=== PATIENT | male | born 1975 | race Caucasian/White ===

== ENCOUNTER 2020-08-17 11:08 | Outpatient (REF) | payer BC, SELFPAY ==
[2020-08-17 15:06] LABS: Alanine Aminotransferase 40 U/L (0-40); Albumin Level 4.4 g/dL (3.5-5.0); Alkaline Phosphatase 60 U/L (39-117); Anion Gap 14 (12-20); Aspartate Amino Transferase 22 U/L (5-37); Bilirubin Total 0.7 mg/dL (0.0-1.0); Blood Urea Nitrogen 20 mg/dL (9-16); Carbon Dioxide 28 mmol/L (22-29); Chloride 101 mmol/L (96-108); Estimated Glomerular Filt Rate > 60; Glucose Random 121 mg/dL (60-115); Potassium 4.1 mmol/l (3.3-5.1); Sodium 139 mmol/L (135-145)
== END 2020-08-17 11:09 | disposition home or self-care (01) ==
LOC: HO.HMGCLDS 11:08
PROVIDERS: PCP Nurse Practitioner Family; Visit Provider Physician Assistant
DX: Z79.899 Other long term (current) drug therapy (principal)
CPT/HCPCS: 80053

== ENCOUNTER 2020-08-24 12:44 | Outpatient (REF) | payer BC, SELFPAY | END 2020-08-24 12:45 | disposition home or self-care (01) | LOC: HO.LNP 12:44 | PROVIDERS: Visit Provider Nurse Practitioner | DX: K21.9 Gastro-esophageal reflux disease without esophagitis (principal) | CPT/HCPCS: 87338 ==

== ENCOUNTER 2020-09-13 11:33 | Outpatient (REF) | payer BC, SELFPAY ==
[2020-09-13 14:31] LABS: Alanine Aminotransferase 35 U/L (0-40); Aspartate Amino Transferase 22 U/L (5-37)
== END 2020-09-13 11:34 | disposition home or self-care (01) ==
LOC: HO.HMGCLDS 11:33
PROVIDERS: PCP Nurse Practitioner Family; Visit Provider Dermatology
DX: Z79.899 Other long term (current) drug therapy (principal)
CPT/HCPCS: 84450; 84460

== ENCOUNTER 2021-09-23 10:09 | Outpatient (REF) | payer BC, SELFPAY ==
--- NOTE | ~2021-09-23 | XR_ITS ---
EXAMINATION: XR CHEST CLINICAL INFORMATION: U07.1 - COVID-19 COMPARISON: Chest radiographs 03/19/2017 TECHNIQUE: 2 views of the chest were obtained. FINDINGS: There are scattered patchy airspace opacity left midlung zone. There is more confluent airspace opacity mid right lung zone greatest anterior lateral upper lobe adjacent to minor fissure and lateral segment middle lobe. The vascularity is normal. There is no pneumothorax or pneumomediastinum or effusion. The heart is normal in size. The vascularity is normal. The hilar and mediastinal contours and bony structures are unremarkable. XR/XR chest 2V IMPRESSION: Scattered bilateral airspace opacities, greater on right. No effusion.
== END 2021-09-23 10:10 | disposition home or self-care (01) ==
LOC: HO.HMGCX 10:09
PROVIDERS: PCP Nurse Practitioner Family; Visit Provider Internal Medicine
DX: R05.9 Cough, unspecified (principal); R06.2 Wheezing; R09.89 Other specified symptoms and signs involving the circulatory and respiratory systems; U07.1 COVID-19
CPT/HCPCS: 71046

== ENCOUNTER 2021-10-06 09:24 | Outpatient (REF) | payer BC, SELFPAY ==
--- NOTE | ~2021-10-06 | XR_ITS ---
EXAMINATION: XR CHEST CLINICAL INFORMATION: Wheezing COMPARISON: 09/23/2021 TECHNIQUE: 2 views of the chest were obtained. FINDINGS: The lungs are well expanded. There is significant improvement of the patchy bilateral airspace opacities with faint residual opacity remaining. No pleural effusion or pneumothorax. The cardiomediastinal silhouette is within normal limits. XR/XR chest 2V IMPRESSION: Significantly improving appearance of the lungs with faint residual patchy bilateral airspace opacities.
== END 2021-10-06 09:25 | disposition home or self-care (01) ==
LOC: HO.HMGCX 09:24
PROVIDERS: PCP Nurse Practitioner Family; Visit Provider Nurse Practitioner Family
DX: R05.9 Cough, unspecified (principal); R06.2 Wheezing
CPT/HCPCS: 71046

== ENCOUNTER 2021-12-13 07:40 | Outpatient (REF) | payer BC, SELFPAY ==
[2021-12-13 11:34] LABS: MANUAL DIFF FLAG NO
[2021-12-13 11:44] LABS: Appearance Urine CLEAR; Color Urine YELLOW; Glucose Urine UA NEG (NEG); Leukocyte Esterase Urine NEG (NEG); Nitrite Urine NEG (NEG); Urine Blood NEG (NEG); Urine Ketones NEG (NEG); Urine Protein NEG (NEG-TRACE)
[2021-12-13 11:46] LABS: Basophils Percent Auto 0.5 % (0-2); Eosinophils Absolute Auto 0.2 X10*3/uL (0.0-0.4); Eosinophils Percent Auto 2.9 % (0-4); Hematocrit 47.3 % (42.0-52.0); Hemoglobin 15.9 g/dl (14.0-18.0); Imm Gran Abs Auto 0.03 X10*3/uL (0.00-0.03); Imm Gran Pct Auto 0.5 % (0.0-0.4); Lymphocytes Absolute Auto 1.6 X10*3/uL (1.2-4.9); Lymphocytes Percent Auto 28.1 % (20-40); Mean Corpuscular HGB Conc 33.6 g/dl (31.0-36.0); Mean Corpuscular Hemoglobin 31.5 pg (27.0-33.0); Mean Corpuscular Volume 93.7 fL (80.0-98.0); Mean Platelet Volume 9.2 fL (9.4-12.4); Monocytes Absolute Auto 0.5 X10*3/uL (0.1-1.2); Monocytes Percent Auto 8.4 % (2-11); Neutrophils Absolute Auto 3.3 x10*3/uL (2.0-8.3); Neutrophils Percent Auto 59.6 % (45-73); Platelet Count 273 X10*3/uL (160-400); Red Blood Count 5.05 X10*6/uL (4.60-5.80); Red Cell Distribution Width 11.9 % (11.0-16.0); White Blood Count 5.6 X10*3/uL (4.8-10.8)
[2021-12-13 12:25] LABS: Alanine Aminotransferase 26 U/L (0-40); Albumin Level 4.3 g/dL (3.5-5.0); Alkaline Phosphatase 59 U/L (39-117); Anion Gap 9 (12-20); Aspartate Amino Transferase 18 U/L (5-37); Bilirubin Total 0.8 mg/dL (0.0-1.0); Blood Urea Nitrogen 15 mg/dL (9-16); Calcium 9.4 mg/dL (8.4-10.2); Carbon Dioxide 30 mmol/L (22-29); Chloride 105 mmol/L (96-108); Cholesterol 236 mg/dL; Estimated Glomerular Filt Rate > 60; Glucose Fasting 110 mg/dL (60-99); HDL Cholesterol 61 mg/dL; LDL Cholesterol Calculated 153 mg/dl; Potassium 4.2 mmol/L (3.3-5.1); Sodium 140 mmol/L (135-145); Total Protein 6.7 g/dL (6.5-8.0); Triglycerides 113 mg/dL
[2021-12-13 12:27] LABS: TSH reflex Free T4 2.71 uIU/mL (0.32-4.0)
[2021-12-13 12:31] LABS: Folate 18.8 ng/mL (> or = 4.0); Vitamin B12 624 pg/mL (200-900)
[2021-12-17 10:26] LABS: Vitamin B6 23.7 ng/mL (2.1-21.7)
== END 2021-12-13 07:41 | disposition home or self-care (01) ==
LOC: HO.HMGCLDS 07:40
PROVIDERS: Visit Provider Nurse Practitioner Family
DX: I10 Essential (primary) hypertension (principal); R53.83 Other fatigue
CPT/HCPCS: 36415; 80053; 80061; 81003; 82306; 82607; 82746; 84207; 84443; 85025

== ENCOUNTER 2022-03-25 06:38 | Outpatient (REF) | payer BC, SELFPAY ==
[2022-03-25 11:13] LABS: MANUAL DIFF FLAG NO
[2022-03-25 11:18] LABS: Basophils Percent Auto 0.5 % (0-2); Eosinophils Absolute Auto 0.2 X10*3/uL (0.0-0.4); Eosinophils Percent Auto 2.9 % (0-4); Hematocrit 45.3 % (42.0-52.0); Hemoglobin 15.1 g/dl (14.0-18.0); Imm Gran Abs Auto 0.02 X10*3/uL (0.00-0.03); Imm Gran Pct Auto 0.3 % (0.0-0.4); Lymphocytes Absolute Auto 1.5 X10*3/uL (1.2-4.9); Lymphocytes Percent Auto 25.3 % (20-40); Mean Corpuscular HGB Conc 33.3 g/dl (31.0-36.0); Mean Corpuscular Hemoglobin 31.6 pg (27.0-33.0); Mean Corpuscular Volume 94.8 fL (80.0-98.0); Mean Platelet Volume 9.1 fL (9.4-12.4); Monocytes Absolute Auto 0.7 X10*3/uL (0.1-1.2); Monocytes Percent Auto 10.9 % (2-11); Neutrophils Absolute Auto 3.6 x10*3/uL (2.0-8.3); Neutrophils Percent Auto 60.1 % (45-73); Platelet Count 282 X10*3/uL (160-400); Red Blood Count 4.78 X10*6/uL (4.60-5.80); Red Cell Distribution Width 11.8 % (11.0-16.0); White Blood Count 5.9 X10*3/uL (4.8-10.8)
[2022-03-25 11:19] LABS: Appearance Urine CLEAR; Color Urine YELLOW; Glucose Urine UA NEG (NEG); Leukocyte Esterase Urine NEG (NEG); Nitrite Urine NEG (NEG); PH 6.5 (5.0-8.0); Urine Blood NEG (NEG); Urine Ketones NEG (NEG); Urine Protein NEG (NEG-TRACE)
[2022-03-25 11:53] LABS: Alanine Aminotransferase 29 U/L (0-40); Albumin Level 4.4 g/dL (3.5-5.0); Alkaline Phosphatase 61 U/L (39-117); Anion Gap 13 (12-20); Aspartate Amino Transferase 26 U/L (5-37); Bilirubin Total 0.8 mg/dL (0.0-1.0); Blood Urea Nitrogen 14 mg/dL (9-16); Calcium 9.6 mg/dL (8.4-10.2); Carbon Dioxide 27 mmol/L (22-29); Chloride 103 mmol/L (96-108); Cholesterol 204 mg/dL; Estimated Glomerular Filt Rate > 60; Glucose Fasting 107 mg/dL (60-99); HDL Cholesterol 62 mg/dL; LDL Cholesterol Calculated 127 mg/dl; Potassium 3.9 mmol/L (3.3-5.1); Sodium 139 mmol/L (135-145); Total Protein 6.9 g/dL (6.5-8.0); Triglycerides 78 mg/dL
[2022-03-25 11:59] LABS: Prostate Specific Antigen Scr 1.72 ng/mL (<0.05-4.0); TSH reflex Free T4 1.93 uIU/mL (0.32-4.0)
== END 2022-03-25 06:39 | disposition home or self-care (01) ==
LOC: HO.HMGCLDS 06:38
PROVIDERS: PCP Nurse Practitioner Family; Visit Provider Nurse Practitioner Family
DX: Z12.5 Encounter for screening for malignant neoplasm of prostate (principal); R73.01 Impaired fasting glucose; I10 Essential (primary) hypertension
CPT/HCPCS: 36415; 80053; 80061; 81003; 84153; 84443; 85025

== ENCOUNTER 2022-04-08 11:12 | Outpatient (REF) | payer BC, SELFPAY ==
[2022-04-08 13:03] LABS: Alanine Aminotransferase 28 U/L (0-40); Aspartate Amino Transferase 20 U/L (5-37)
== END 2022-04-08 11:13 | disposition home or self-care (01) ==
LOC: HO.HMGCLDS 11:12
PROVIDERS: PCP Nurse Practitioner Family; Visit Provider Dermatology
DX: L30.9 Dermatitis, unspecified (principal)
CPT/HCPCS: 36415; 84450; 84460

== ENCOUNTER 2023-08-11 06:50 | Outpatient (REF) | payer BC, SELFPAY ==
[2023-08-11 11:16] LABS: Appearance Urine Clear; Color Urine Yellow; Glucose Urine UA Negative (Negative); Leukocyte Esterase Urine Negative (Negative); Nitrite Urine Negative (Negative); PH 6.5 (5.0-9.0); Specific Gravity - Urine 1.015 (1.005-1.025); Urine Blood Negative (Negative); Urine Ketones Negative (Negative); Urine Protein Negative (Neg-Trace)
[2023-08-11 11:19] LABS: MANUAL DIFF FLAG NO
[2023-08-11 11:22] LABS: Basophils Percent Auto 0.5 % (0-2); Eosinophils Absolute Auto 0.2 X10*3/uL (0.0-0.4); Hematocrit 44.9 % (42.0-52.0); Hemoglobin 15.3 g/dl (14.0-18.0); Imm Gran Abs Auto 0.03 X10*3/uL (0.00-0.03); Imm Gran Pct Auto 0.4 % (0.0-0.4); Lymphocytes Absolute Auto 1.4 X10*3/uL (1.2-4.9); Lymphocytes Percent Auto 16.8 % (20-40); Mean Corpuscular HGB Conc 34.1 g/dl (31.0-36.0); Mean Corpuscular Hemoglobin 32.1 pg (27.0-33.0); Mean Corpuscular Volume 94.1 fL (80.0-98.0); Mean Platelet Volume 9.1 fL (9.4-12.4); Monocytes Absolute Auto 0.7 X10*3/uL (0.1-1.2); Monocytes Percent Auto 8.2 % (2-11); Neutrophils Absolute Auto 5.9 x10*3/uL (2.0-8.3); Neutrophils Percent Auto 72.1 % (45-73); Platelet Count 243 X10*3/uL (160-400); Red Blood Count 4.77 X10*6/uL (4.60-5.80); Red Cell Distribution Width 11.6 % (11.0-16.0); White Blood Count 8.2 X10*3/uL (4.8-10.8)
[2023-08-11 11:47] LABS: Alanine Aminotransferase 27 U/L (0-40); Albumin Level 4.1 g/dL (3.5-5.0); Alkaline Phosphatase 50 U/L (39-117); Anion Gap 12 (12-20); Aspartate Amino Transferase 19 U/L (5-37); Bilirubin Total 1.2 mg/dL (0.0-1.0); Blood Urea Nitrogen 14 mg/dL (9-16); Calcium 9.2 mg/dL (8.4-10.2); Carbon Dioxide 26 mmol/L (22-29); Chloride 105 mmol/L (96-108); Cholesterol 198 mg/dL (<200); Estimated Glomerular Filt Rate > 60; Glucose Fasting 95 mg/dL (60-99); HDL Cholesterol 62 mg/dL (>40); LDL Cholesterol Calculated 117 mg/dL (<100); Potassium 3.9 mmol/L (3.3-5.1); Sodium 139 mmol/L (135-145); Total Protein 6.6 g/dL (6.5-8.0); Triglycerides 97 mg/dL (<150)
[2023-08-11 12:04] LABS: TSH reflex Free T4 2.12 uIU/mL (0.32-4.0)
== END 2023-08-11 06:51 | disposition home or self-care (01) ==
LOC: HO.HMGCLDS 06:50
PROVIDERS: PCP Nurse Practitioner Family; Visit Provider Nurse Practitioner Family
DX: I10 Essential (primary) hypertension (principal)
CPT/HCPCS: 36415; 80053; 80061; 81003; 84443; 85025

== ENCOUNTER 2023-10-04 15:07 | Outpatient (AMB) | payer BC, SELFPAY ==
[2023-10-04 16:03] VITALS: BP 120/78; PULSE 99; TEMP 36.4; O2SAT 99; BMI 28.7
--- NOTE | 2023-10-04 16:03 | AM.OFFWIN_ITS ---
Intake Vital Signs 10/04/23 16:03 Height 5 ft 8 in Weight 189 lb BMI 28.7 BP 120/78 Blood Pressure Location Rt brachial Position Sitting Pulse 99 Pulse Source Pulse Oximeter Temp 97.5 F Temp Source Temporal Artery Scan Pulse Oximetry (%) 99 Oxygen Delivery Method Room Air Intake Visit Reasons: EP, head congestion, ear pain ([phone]) Intake Note: pt is here today for head congestion ear pain started 3 weeks Patient Tobacco Use Status: Never used Tobacco Allergies shellfish derived Allergy (Unknown, Verified 10/04/23 16:05) Facial Swelling acetaminophen [From Percocet] Adverse Reaction (Unknown, Verified 10/04/23 16:05) NAUSEA/VOMITING oxycodone [From Percocet] Adverse Reaction (Unknown, Verified 10/04/23 16:05) NAUSEA/VOMITING Do you need a note to return to daycare/school/sports/work: Yes HPI HPI Comments History of Present Illness Details This is a 47-year-old male with a past medical history of hypertension and seasonal allergies presenting for evaluation of sinus pressure that has been worsening over the past 3 weeks and new ear pain, right greater than left as well as a cough with discolored sputum. Patient denies having any fevers, chills, difficulty swallowing, chest pain or shortness of breath. Patient has not taken any medication [id number] for management of his symptoms. [facility] Medical History Plantar fasciitis of right foot Social History Housing: House Patient Tobacco Use Status: Never used Tobacco e-Cigarette/Vaping Use: Never Used Second Hand Smoke Exposure: No service: No Current occupational status: unemployed Cognitive needs: No Hearing needs: No Vision needs: No Review of Systems Const All systems reviewed & are unremarkable except as noted in HPI and below Denies chills and Denies fever(s) Eyes Reports no additional complaints ENT Reports no additional complaints, Reports otalgia and Denies sore throat Card Reports no additional complaints and Denies dyspnea Resp Reports as per HPI, Reports cough and Denies dyspnea Physical Exam Vital Signs: Last Vital Signs Temp 97.5 F 10/04/23 16:03 Pulse 99 10/04/23 16:03 BP 120/78 10/04/23 16:03 Pulse Ox 99 10/04/23 16:03 Oxygen Delivery Method Room Air 10/04/23 16:03 BMI result Body Mass Index 28.7 Const General: cooperative, healthy appearing, comfortable and no acute distress Nutritional Appearance: average body habitus Orientation/consciousness: patient oriented x3 Limitations: no limitations HEENT Head: Yes normal to inspection and Yes normocephalic Ears: hearing grossly normal bilaterally, external ears normal, TM's abnormal bilaterally (TMs bulging bilaterally; R. TM erythematous with mild fluid level) and EAC's normal General nose exam: Normal external nose present Face and sinus: Yes normal facial exam and Yes sinuses nontender Mouth: Normal oral and palatal mucosa present and oropharynx normal Teeth and gingiva: dentition normal Throat: Yes postnasal drainage Eyes Eyelids: Yes eyelids normal Conjunctivae: conjunctivae normal Sclerae: sclerae normal Pupils: Equal, round and reactive pupils present Neck Lymphatic: no lymphadenopathy noted Resp Effort & Inspection: normal respiratory effort, able to speak in complete sentences, no audible wheezes and Actively coughing Auscultation: clear to auscultation bilaterally Cardio Rate: regular rate Rhythm: regular rhythm Neuro General: patient oriented x3 Cranial nerves: Yes Equal, round and reactive pupils present Psych Appearance: grossly normal Mental Status: mental status grossly normal Insight: Good insight present (Psych) Judgement: Good judgement present (Psych) Assessment & Plan Assessment & Plan (1) Otitis media: Code(s): H66.90 - Otitis media, unspecified, unspecified ear Qualifiers: Otitis media type: serous Chronicity: acute Laterality: right Recurrence: non-recurrent Qualified Code(s): H65.01 - Acute serous otitis media, right ear Plan: Amoxicillin t.i.d. x7 days; increase clear fluids daily, follow-up with PCP within 10-14 days if symptoms not improving. Medications: New amoxicillin 500 mg PO TID 21 caps 0RF Coding Level of Care Code Est Pt Level 3 (26126) Diagnoses Non-recurrent acute serous otitis media of right ear H65.01 Otitis media type: serous Chronicity: acute Laterality: right Recurrence: non-recurrent Time Spent (min) 20
== END 2023-10-04 17:54 | disposition home or self-care (01) ==
PROVIDERS: PCP Nurse Practitioner Family; Visit Provider Physician Assistant
DX: H65.01 Acute serous otitis media, right ear (principal)
CPT/HCPCS: 99213

== ENCOUNTER 2023-10-05 12:37 | Outpatient (REF) | payer BC, SELFPAY ==
[2023-10-05 14:49] LABS: Alanine Aminotransferase 23 U/L (0-40); Aspartate Amino Transferase 20 U/L (5-37)
== END 2023-10-05 12:38 | disposition home or self-care (01) ==
LOC: HO.HMGCLDS 12:37
PROVIDERS: PCP Nurse Practitioner Family; Visit Provider Dermatology
DX: B35.1 Tinea unguium (principal); L30.8 Other specified dermatitis; L85.1 Acquired keratosis [keratoderma] palmaris et plantaris
CPT/HCPCS: 36415; 84450; 84460

== ENCOUNTER 2024-05-29 15:06 | Outpatient (AMB) | payer BC, SELFPAY ==
--- NOTE | 2024-05-29 15:27 | MHC.PC.OV ---
Vital Signs 05/29/24 15:29 Height 5 ft 8 in Weight 190 lb BMI 28.9 BP 118/78 Blood Pressure Location Rt brachial Position Sitting Pulse 86 Pulse Source Pulse Oximeter Pulse Oximetry (%) 98 Oxygen Delivery Method Room Air Intake Visit Reasons: Physical Exam - see comments Intake Note: Patient here for physical exam. Cologuard: has it at home but has done yet. Allergies shellfish derived Allergy (Unknown, Verified 05/29/24 15:30) Facial Swelling acetaminophen [From Percocet] Adverse Reaction (Unknown, Verified 05/29/24 15:30) NAUSEA/VOMITING oxycodone [From Percocet] Adverse Reaction (Unknown, Verified 05/29/24 15:30) NAUSEA/VOMITING Medication List - Last Reconciled 05/29/24 by ALEXSANDRA Moore amlodipine 10 mg PO DAILY 90 days labetalol 100 mg PO BID Tobacco use date assessed: 05/29/24 Dental Screening Dental Screen Date: 05/29/24 Did you have a dental visit in the last 12 months?: Yes Did you have a dental problem in the last 6 months where you did not have access to dental care?: No Was dental information given to patient?: Patient has dentist HPI Physical Exam - see comments HPI Details Pt is here for a PE. Will order labs. Due for colon screen, will order cologuard. Due for PSA, will order. Denies dribbling with urination, weak stream, and frequent nocturia. [facility] Medical History Plantar fasciitis of right foot Social History Housing: House Patient Tobacco Use Status: Never used Tobacco e-Cigarette/Vaping Use: Never Used Second Hand Smoke Exposure: No service: No Current occupational status: unemployed Cognitive needs: No Hearing needs: No Vision needs: No Questionnaire PHQ-9 Over the last 2 weeks, how often have you been bothered by any of the following problems? 1. Little interest or pleasure in doing things: not at all 2. Feeling down, depressed, or hopeless: not at all 3. Trouble falling or staying asleep, or sleeping too much: not at all 4. Feeling tired or having little energy: not at all 5. Poor appetite or overeating: not at all 6. Feeling bad about yourself - or that you are a failure or have let yourself or your family down: not at all 7. Trouble concentrating on things, such as reading the newspaper or watching television: not at all 8. Moving or speaking so slowly that other people could have noticed. Or the opposite - being so fidgety or restless that you have been moving around a lot more than usual: not at all 9. Thoughts that you would be better off or of hurting yourself in some way: not at all Total score: 0 Depression Screening Interpretation: Negative Depression Screening Done: Yes 59335 - PHQ-9 Billing: Yes Source: Developed by Drs. Rodolfo Grimaldo, Elke Dukes, Iggy Swann and colleagues, with an educational carey from [employer]. Thrive Questionnaire Date Thrive assessed: 05/29/24 I am a: Patient What is your living situation today?: I have a steady place to live Within the past 12 months, did the food you bought not last and you didn't have the money to get more?: I choose not to answer this question Within the past 12 months, did you worry whether your food would run out before you got money to buy more?: I choose not to answer this question Do you have trouble paying for medicines?: I choose not to answer this question Do you have trouble getting transportation to medical appointments?: I choose not to answer this question Do you have trouble paying your heating and electricity bill?: I choose not to answer this question Do you have trouble taking care of your child, family member or friend?: I choose not to answer this question Do you have trouble with day-to-day activities such as bathing, preparing meals, shopping, managing finances, etc.?: I choose not to answer this question Are you currently unemployed and looking for a job?: No Are you interested in more education?: I choose not to answer this question Please select the resources that you would like help with: Housing/Half-Way Currently or been in a relationship where the following occur: I choose not to answer THRIVE Score: 0 AUDIT C Alcohol Use Questionnaire (AUDIT-C) 1. How often do you have a drink containing alcohol?: Never Total Score: 0 Score Reviewed/Action Taken: No MIRZA-7 AMB Questionnaire MIRZA-7 Date MIRZA - 7 assessed: 05/29/24 Feeling nervous, anxious, or on edge: 0 = Not at all Not being able to stop or control worryin = Not at all Worrying too much about different things: 0 = Not at all Trouble relaxin = Not at all Being so restless that it is hard to sit still: 0 = Not at all Becoming easily annoyed or irritable: 0 = Not at all Feeling afraid as if something awful might happen: 0 = Not at all Total MIRZA-7 score (0-4 normal; 5-9 mild; 10-14 moderate; 15-21 severe): 0 Source: Developed by Drs. Rodolfo Grimaldo, Elke Dukes, Iggy Swann and colleagues, with an educational carey from [employer]. MIRZA-7 Assessment Billing MIRZA-7 Assessment Tool: MIRZA-7 Assessment 13382 Review of Systems Const Denies chills and Denies fever(s) Eyes Denies blurry vision ENT Denies vertigo, Denies dizziness and Denies sore throat Card Denies chest pain at rest, Denies chest pain with activity, Denies diaphoresis, Denies dyspnea and Denies dyspnea on exertion Resp Denies cough, Denies dyspnea, Denies dyspnea on exertion and Denies wheezing GI Denies abdominal pain, Denies melena, Denies hematochezia, Denies constipation, Denies diarrhea and Denies loose stools Denies hematuria Musc Denies numbness and Denies tingling Skin/Breast Denies lesions Neuro Denies vertigo, Denies dizziness, Denies numbness and Denies tingling Psych Denies anxiety, Denies depression, Denies homicidal ideation, Denies suicidal ideation and Denies other (substance abuse) Aller/Immun Denies wheezing Physical exam (Primary Care) Vital Signs: Last Vital Signs Pulse 86 05/29/24 15:29 BP 118/78 05/29/24 15:29 Pulse Ox 98 05/29/24 15:29 Oxygen Delivery Method Room Air 05/29/24 15:29 BMI result Body Mass Index 28.9 Tobacco/Smoking Status: Tobacco use Status Tobacco use date assessed 05/29/24 05/29/24 15:33 Patient Tobacco Use Status Never used Tobacco 05/29/24 15:28 e-Cigarette/Vaping Use Never Used 05/29/24 15:28 PHQ-9: PHQ-9 Score PHQ-9: Total score 0 05/29/24 15:57 Depression Screening Interpretation: Negative Thrive Assessment: Date of Thrive Assessment Date Thrive assessed 05/29/24 05/29/24 15:33 Currently or been in a relationship where the following occur: I choose not to answer Const General: cooperative Nutritional Appearance: well nourished Orientation/consciousness: patient oriented x3 HENMT Head: Yes normal to inspection, Yes normocephalic and Yes atraumatic Ears: TM's normal bilaterally Eyes General: appearance normal, both eyes and all related structures Alignment and Position: alignment normal and position normal Neck Neck: Yes normal visual inspection and Yes no lymphadenopathy Thyroid: Thyroid normal Resp Effort & Inspection: normal respiratory effort Auscultation: clear to auscultation bilaterally Cardio Rate: regular rate Rhythm: regular rhythm Heart sounds: S1 normal heart sound present, S2 normal heart sound present and no murmurs GI Palpation (GI): Soft to palpation and nontender Auscultation: normal bowel sounds Male General Exam: Yes normal external exam Penis: normal penis Scrotum: scrotum normal, testes descended bilaterally and no inguinal hernias Testes: no testicular mass Skin Rashes: no rashes Neuro General: patient oriented x3, moves all extremities, no focal motor deficits and deep tendon reflexes 2+ bilaterally Romberg Test: Negative Psych Appearance: grossly normal Mental Status: mental status grossly normal Speech and movement: Normal speech and movement present Affect: normal affect Attitude: cooperative Thought process: Normal thought process present Thought content: Normal thought content present Insight: Good insight present (Psych) Judgement: Good judgement present (Psych) Assessment and Plan Assessment & Plan (1) Screening PSA (prostate specific antigen): Code(s): Z12.5 - Encounter for screening for malignant neoplasm of prostate (2) Encounter for routine adult physical exam with abnormal findings: Code(s): Z00.01 - Encounter for general adult medical examination with abnormal findings (3) Encounter for routine adult physical exam with abnormal findings: Code(s): Z00.01 - Encounter for general adult medical examination with abnormal findings (4) Encounter for routine adult physical exam with abnormal findings: Code(s): Z00. - Encounter for general adult medical examination with abnormal findings (5) Physical exam: Code(s): Z00.00 - Encounter for general adult medical examination without abnormal findings Plan: Labs ordered Plan The patient agreed to the use of a medical cash poster for this encounter. Scribed for ALEXSANDRA Barriga by Lorena Levi medical cash poster, on 05/29/2024 at 15:55 EST. Orders: Orders UA CC w/rflx Micro + Cult Today Z00.01 - Encounter for general adult medical examination with abnormal findings Prostate Specific Antigen Scr Today Z12.5 - Encounter for screening for malignant neoplasm of prostate Complete Blood Count Auto Diff Today Z00.01 - Encounter for general adult medical examination with abnormal findings Comprehensive [place]. Panel Fast Today Z00.01 - Encounter for general adult medical examination with abnormal findings TSH reflex Free T4 Today Z00.01 - Encounter for general adult medical examination with abnormal findings Lipid Panel Today Z00.01 - Encounter for general adult medical examination with abnormal findings Coding Level of Care Code Est Pt Prev Care 40-64y(98787) Diagnoses Screening PSA (prostate specific antigen) Z12.5 Encounter for routine adult physical exam with abnormal findings Z00.01 Physical exam Z00.00 Additional Codes MIRZA-7 Assessment Billing - MIRZA-7 Assessment Tool: MIRZA-7 Assessment 72770 ([id number])
[2024-05-29 15:29] VITALS: BP 118/78; PULSE 86; O2SAT 98; BMI 28.9
== END 2024-05-29 16:53 | disposition home or self-care (01) ==
PROVIDERS: PCP Nurse Practitioner Family; Visit Provider Nurse Practitioner Family
DX: Z00.00 Encounter for general adult medical examination without abnormal findings (principal); Z12.5 Encounter for screening for malignant neoplasm of prostate
CPT/HCPCS: 99396

== ENCOUNTER 2024-07-09 07:37 | Outpatient (REF) | payer BC, SELFPAY ==
[2024-07-09 10:09] LABS: MANUAL DIFF FLAG NO
[2024-07-09 10:20] LABS: Basophils Percent Auto 0.5 % (0-2); Eosinophils Absolute Auto 0.2 X10*3/uL (0.0-0.4); Hematocrit 43.1 % (42.0-52.0); Hemoglobin 14.8 g/dl (14.0-18.0); Imm Gran Abs Auto 0.02 X10*3/uL (0.00-0.03); Imm Gran Pct Auto 0.3 % (0.0-0.4); Lymphocytes Absolute Auto 1.3 X10*3/uL (1.2-4.9); Lymphocytes Percent Auto 20.8 % (20-40); Mean Corpuscular HGB Conc 34.3 g/dl (31.0-36.0); Mean Corpuscular Volume 93.3 fL (80.0-98.0); Monocytes Absolute Auto 0.6 X10*3/uL (0.1-1.2); Monocytes Percent Auto 9.5 % (2-11); Neutrophils Percent Auto 65.9 % (45-73); Platelet Count 256 X10*3/uL (160-400); Red Blood Count 4.62 X10*6/uL (4.60-5.80); Red Cell Distribution Width 11.7 % (11.0-16.0)
[2024-07-09 10:39] LABS: Appearance Urine Clear; Color Urine Yellow; Glucose Urine UA Negative (Negative); Leukocyte Esterase Urine Negative (Negative); Nitrite Urine Negative (Negative); Urine Blood Negative (Negative); Urine Ketones Negative (Negative); Urine Protein Negative (Neg-Trace)
[2024-07-09 10:47] LABS: Alanine Aminotransferase 36 U/L (0-40); Albumin Level 4.3 g/dL (3.5-5.0); Alkaline Phosphatase 51 U/L (39-117); Anion Gap 10 (12-20); Aspartate Amino Transferase 25 U/L (5-37); Bilirubin Total 0.5 mg/dL (0.0-1.0); Blood Urea Nitrogen 16 mg/dL (9-16); Calcium 9.1 mg/dL (8.4-10.2); Carbon Dioxide 27 mmol/L (22-29); Chloride 108 mmol/L (96-108); Cholesterol 223 mg/dL (<200); Estimated Glomerular Filt Rate > 60; Glucose Fasting 118 mg/dL (60-99); HDL Cholesterol 57 mg/dL (>40); LDL Cholesterol Calculated 153 mg/dL (<100); Potassium 4.8 mmol/L (3.3-5.1); Sodium 140 mmol/L (135-145); Total Protein 6.7 g/dL (6.5-8.0); Triglycerides 67 mg/dL (<150)
[2024-07-09 10:54] LABS: Prostate Specific Antigen Scr 1.87 ng/mL (<0.05-4.0)
[2024-07-09 11:03] LABS: TSH reflex Free T4 2.16 uIU/mL (0.32-4.0)
== END 2024-07-09 07:38 | disposition home or self-care (01) ==
LOC: HO.HMGCLDS 07:37
PROVIDERS: PCP Nurse Practitioner Family; Visit Provider Nurse Practitioner Family
DX: Z00.01 Encounter for general adult medical examination with abnormal findings (principal); Z12.5 Encounter for screening for malignant neoplasm of prostate
CPT/HCPCS: 36415; 80053; 80061; 81003; 84153; 84443; 85025

== ENCOUNTER 2025-05-03 19:04 | Emergency (ER) | payer BC, SELFPAY ==
[2025-05-03 19:23] VITALS: BP 123/87; PULSE 99; RESP 16; TEMP 37.2; O2SAT 99; BMI 29.5
--- NOTE | 2025-05-03 19:25 | ED.GENADULT ---
HPI - General Adult General Chief complaint: Animal Bite Stated complaint: dog bite on abd Time Seen by Provider: 05/03/25 20:21 Source: patient Limitations: no limitations History of Present Illness ED Provider: Selin Kimble PA-C HPI narrative: 49-year-old male presents after dog bite. Patient states a dog randomly attacked him. He was able to verify the dog's vaccine history, the rabies his current it does not until next year in July. Patient's tetanus vaccine is not up-to-date. Related Data Previous Rx's ?Medication ?Instructions ?Recorded amlodipine 10 mg tablet 10 mg PO DAILY 90 days #90 tabs 12/18/24 labetalol 100 mg tablet 100 mg PO BID #180 tabs 12/18/24 amoxicillin 875 mg-potassium 1 tab PO Q12H #9 tabs 05/03/25 clavulanate 125 mg tablet Allergies Allergy/AdvReac Type Severity Reaction Status Date / Time shellfish derived Allergy Unknown Facial Verified 05/03/25 19:23 Swelling acetaminophen (From Percocet) AdvReac Unknown NAUSEA/VOMI Verified 05/03/25 19:23 TING oxycodone (From Percocet) AdvReac Unknown NAUSEA/VOMI Verified 05/03/25 19:23 TING Review of Systems Review of Systems: Yes all other systems are reviewed and are negative Constitutional: Constitutional: Denies fatigue and Denies fever(s) Integumentary/Breasts: Skin/Breast: Reports wounds Endocrine: Endocrine: Denies fatigue PMFSH Past Medical History Attestation statement: The following information was validated with the patient. Medical History (Updated 05/03/25 @ 20:54 by MANIJT Childers) Rupture of right biceps tendon Plantar fasciitis of right foot Social History Social History Housing: House Patient Tobacco Use Status: Never used Tobacco e-Cigarette/Vaping Use: Never Used Second Hand Smoke Exposure: No service: No Current occupational status: unemployed Cognitive needs: No Hearing needs: No Vision needs: No Physical Exam ED Vital Signs: Vital Signs - 24 hr 05/03/25 19:23 05/03/25 20:27 Temperature 98.9 F 98.4 F Pulse Rate 99 103 H Respiratory Rate 16 20 Blood Pressure 123/87 138/91 H Pulse Oximetry 99 96 Oxygen Delivery Method Room Air Room Air BMI result Body Mass Index 29.5 Const Other: Alert Resp Effort & Inspection: normal respiratory effort Cardio Other: Normal peripheral perfusion GI Other: Bite wound noted over right lower abdomen, there is a superficial excoriation from the teeth, overlying ecchymosis, additional superficial punctures that are no longer bleeding. Skin Other: Warm dry no rash Extrem Other: 1 cm excoriation over right calf, not bleeding, from the dog's tooth Course Course Course Narrative: This is a rapid medical exam performed by Jeffy Philippe NP: Additional HPI, ROS, PE not included below will be deferred to primary provider. Patient is a 49-year-old male presenting to the ED with complaint of dog bite to abdomen. Occurred in [place], dog was being walked by a doggy daycare activities director. 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 He is unsure if dog is UTD on vaccinations. States he contacted police who came to his home to fill out a police report. Plan: Patient unsure what vaccinations he is willing to get. Medical Decision Making Medical Decision Making MDM Narrative: 49-year-old male presents after dog bite. Patient states a dog randomly attacked him. He was able to verify the dog's vaccine history, the rabies his current it does not until next year in July. Patient's tetanus vaccine is not up-to-date. No chronic issues History: Per patient I have considered the following differential diagnoses: Bite wound, need for rabies prophylaxis, puncture wound, laceration, excoriation, abrasion Plan: The wounds were cleaned and dressed, there was nothing to repair. Updating the tetanus. The patient has a dog's vaccine record. Placing the patient on Augmentin. Discharge Plan Discharge Clinical Impression: Dog bite of abdomen Patient Disposition: Home, Self-Care Instructions: Animal Bite (ED) Additional Instructions: You are being treated for a dog bite. Your tetanus was updated, it is valid for 10 years. You are being placed on prophylactic antibiotics to help prevent infection, take the Augmentin as directed. This antibiotic has a propensity to cause diarrhea, I would take a concurrent probiotic. Follow up with your primary care provider within a week for a wound check. Prescriptions: New amoxicillin-pot clavulanate 875-125 mg tablet 1 tab PO Q12H Qty: 9 0RF No Action amlodipine 10 mg tablet 10 mg PO DAILY 90 Days Qty: 90 1RF labetalol 100 mg tablet 100 mg PO BID Qty: 180 1RF Print Language: [place]
[2025-05-03 20:27] VITALS: BP 138/91; PULSE 103; RESP 20; TEMP 36.9; O2SAT 96
[2025-05-03] MEDS: Diphth,Pertus(ACell),Tet Adult 0.5 ML SYRINGE IM (21:02)
[2025-05-03 21:05] VITALS: BP 138/91; PULSE 103; RESP 20; TEMP 36.9; O2SAT 96
== END 2025-05-03 21:21 | disposition home or self-care (01) ==
PROVIDERS: Emergency Provider Emergency Medicine; PCP Nurse Practitioner Family
DX: S31.159A Open bite of abdominal wall, unspecified quadrant without penetration into peritoneal cavity, initial encounter (principal); S30.811A Abrasion of abdominal wall, initial encounter; S30.1XXA Contusion of abdominal wall, initial encounter; W54.0XXA Bitten by dog, initial encounter; Y93.9 Activity, unspecified; Y92.9 Unspecified place or not applicable; Y99.8 Other external cause status; Z23 Encounter for immunization
CPT/HCPCS: 90471; 90715; 99283; 99284

== ENCOUNTER 2025-05-08 09:43 | Outpatient (AMB) | payer BC, SELFPAY ==
[2025-05-08 10:00] VITALS: BP 120/72; PULSE 85; TEMP 37.2; O2SAT 98; BMI 29.8
--- NOTE | 2025-05-08 10:00 | AM.OFFWIN_ITS ---
Intake Vital Signs 05/08/25 10:00 Height 5 ft 8 in Weight 196 lb 4 oz BMI 29.8 BP 120/72 Blood Pressure Location Rt brachial Position Sitting Pulse 85 Pulse Source Pulse Oximeter Temp 99.0 F Temp Source Oral Pulse Oximetry (%) 98 Oxygen Delivery Method Room Air Intake Visit Reasons: EP Dog bite, rt hip Intake Note: Patient presents with a dog bite from 5 days ago Patient Tobacco Use Status: Never used Tobacco Procurement Representative Required: No Allergies shellfish derived Allergy (Unknown, Verified 05/08/25 10:04) Facial Swelling acetaminophen (From Percocet) Adverse Reaction (Unknown, Verified 05/08/25 10:04) NAUSEA/VOMITING oxycodone (From Percocet) Adverse Reaction (Unknown, Verified 05/08/25 10:04) NAUSEA/VOMITING Medication List - Last Reconciled 05/08/25 by Sania Iqbal MD amlodipine 10 mg PO DAILY 90 days labetalol 100 mg PO BID Do you need a note to return to daycare/school/sports/work: No HPI EP Dog bite, rt hip HPI Details History - The patient is a 49 year old male pres enting with swelling and warmth in the right side of lower abdomen following a dog bite. - The incident occurred on May 03, when the patient was bitten by a stranger's dog while crossing an intersection. The dog was on a leash but still managed to bite him. - The bite resulted in puncture wounds on the right lower abdomen. The patient reported to paramedics, who cleaned the wound and recommended a hospital visit. - The patient visited [facility] here the wound was cleaned, and he received a tetanus shot along with a prescription for amoxicillin/clavulanate. For 5 days - The patient completed a five-day cours e of the prescribed antibiotic, taking the medication every 12 hours, with the last dose taken on the morning of the visit. - He has been icing the affected area th ree times daily and taking ibuprofen 600 mg thrice daily to manage swelling. - The patient reports persistent swellin g, warmth to the touch , and pain exa cerbated by pressure during activities like getting in and out of his vehicle. - Ecchymosis and hematoma were mentioned as potential causes of pain and swelling without signs of deep infection. On examination Medical History: - The patient received a tetanus shot po st-dog bite. Medications - Amoxicillin/clavulanate, completed for five days, for bite management. - Ibuprofen 600 mg, three times daily fo r swelling management. Problem List - Dog bite wound to the right lower abdo men - large ecchymosis around that area - wound slightly erythematous on the jamie roundings with yellow in the center without discharge Patient Instructions - continued taking another 10-day course of antibiotics as prescribed. Augmentin - Monitor the wound and keep it clean. - Use ice to help with swelling. - Take ibuprofen as needed for pain. - Visit a primary care provider if sympt oms worsen or persist. And for follow- up after 10 days Review of Systems General: No fever no chills neurological: No headaches no dizziness ear nose throat: No sore throat no hearing difficulty no ear pain cardiovascular: No syncope, no chest pain, no palpitations gastrointestinal: No nausea vomiting or diarrhea Physical Exam general: No acute distress HEENT: No acute findings neck: Supple respiratory system: Able to talk in full sentences, no audible wheeze no stridor gastrointestinal: No pain with palpation upper abdomen left lower quadrant and middle extremities: Right lower abdomen with healing wound and to other puncture sites which are healed, large area of ecchymosis around the bite PROPERTY DAMAGE CLAIMS ADJUSTOR: Alert awake oriented x3 skin: Normal turgor, irritation around the tissues on the right calf but no signs of infection [facility] Medical History Rupture of right biceps tendon Plantar fasciitis of right foot Social History Housing: House Patient Tobacco Use Status: Never used Tobacco e-Cigarette/Vaping Use: Never Used Second Hand Smoke Exposure: No service: No Current occupational status: unemployed Cognitive needs: No Hearing needs: No Vision needs: No Physical Exam Vital Signs: Last Vital Signs Temp 99.0 F 05/08/25 10:00 Pulse 85 05/08/25 10:00 BP 120/72 05/08/25 10:00 Pulse Ox 98 05/08/25 10:00 Oxygen Delivery Method Room Air 05/08/25 10:00 BMI result Body Mass Index 29.8 Assessment & Plan Assessment & Plan (1) Dog bite of abdomen: Code(s): S31.159A - Open bite of abdominal wall, unspecified quadrant without penetration into peritoneal cavity, initial encounter; W54.0XXA - Bitten by dog, initial en counter (2) Superficial bruising of abdominal wall: Code(s): S30.1XXA - Contusion of abdominal wall, initial encounter Qualifiers: Encounter type: initial encounter Qualified Code(s): S30.1XXA - Contusion of abdominal wall, initial encounter (3) Skin infection: Code(s): L08.9 - Local infection of the skin and subcutaneous tissue, unspecified (4) Seen in emergency room: Code(s): Z76.89 - Persons encountering health services in other specified circumstances Plan History - The patient is a 49 year old male presenting with swelling and warmth in the right side of lower abdomen following a dog bite. - The incident occurred on May 03, when the patient was bitten by a stranger's dog while crossing an intersection. The dog was on a leash but still managed to bite him. - The bite resulted in puncture wounds on the right lower abdomen. The patient reported to paramedics, who cleaned the wound and recommended a hospital visit. - The patient visited [facility], where the wound was cleaned, and he received a tetanus shot along with a prescription for amoxicillin/clavulanate. For 5 days - The patient completed a five-day course of the prescribed antibiotic, taking the medication every 12 hours, with the last dose taken on the morning of the visit. - He has been icing the affected area three times daily and taking ibuprofen 600 mg thrice daily to manage swelling. - The patient reports persistent swelling, warmth to the touch , and pain exacerbated by pressure during activities like getting in and out of his vehicle. - Ecchymosis and hematoma were mentioned as potential causes of pain and swelling without signs of deep infection. On examination Medical History: - The patient received a tetanus shot post-dog bite. Medications - Amoxicillin/clavulanate, completed for five days, for bite management. - Ibuprofen 600 mg, three times daily for swelling management. Problem List - Dog bite wound to the right lower abdomen - large ecchymosis around that area - wound slightly erythematous on the surroundings with yellow in the center without discharge Patient Instructions - continued taking another 10-day course of antibiotics as prescribed. Augmentin - Monitor the wound and keep it clean. - Use ice to help with swelling. - Take ibuprofen as needed for pain. - Visit a primary care provider if symptoms worsen or persist. And for follow- up after 10 days Medications: Changed From amoxicillin-pot clavulanate 875-125 mg 1 tab PO Q12H 9 tabs 0RF To amoxicillin-pot clavulanate 875-125 mg 1 tab PO Q12H 20 tabs 0RF 10 days Coding Level of Care Code Est Pt Level 4 (17106) Diagnoses Dog bite of abdomen S31.159A; W54.0XXA Contusion of abdominal wall, initial encounter S30.1XXA Encounter type: initial encounter Skin infection L08.9 Seen in emergency room Z76.89 Time Spent (min) 30 Comment Reviewing hospital notes, chart, [id number], coordination of care
== END 2025-05-08 10:25 | disposition home or self-care (01) ==
PROVIDERS: PCP Nurse Practitioner Family; Visit Provider Internal Medicine
DX: S31.153A Open bite of abdominal wall, right lower quadrant without penetration into peritoneal cavity, initial encounter (principal); W54.0XXA Bitten by dog, initial encounter; S30.1XXA Contusion of abdominal wall, initial encounter; L08.9 Local infection of the skin and subcutaneous tissue, unspecified; Z76.89 Persons encountering health services in other specified circumstances

== ENCOUNTER 2025-05-20 13:46 | Outpatient (AMB) | payer BC, SELFPAY ==
--- OUTSIDE RECORDS SUMMARY | 2025-05-20 14:28 | XMS_ITS | Encounter Summary ---
Author Organization [facility] Address [address] [place] [id number] Phone Care Team Providers Care Bending Frame Operator Name Role Phone Lincoln Randhawa FISH ROD MAKER Unavailable Lincoln Randhawa FISH ROD MAKER Primary Care Provider + Encounter Details Date Type Department Care Team (Late st Contact Info) Description 07/11/2024 Procedure Pass OR Admitting Dept - Virtual Department [address] [place] [address] Social History Tobacco Use Types Packs/Day Years Used Date Smoking Tobacco: Never Smokeless Tobacco: Never Alcohol Use Standard Drinks/Week Comments Yes 0 (1 standard drink = 0.6 oz pur e alcohol) one drink once a month Education Answer Date Recorded Are you interested in more education? Not on penelope e 02/23/2023 Are you concerned about learning? Not on file 02/23/2023 No 02/23/2023 No 02/23/2023 Digital Access Answer Date Recorded No 03/26/2023 No 03/26/2023 Reliable internet access at home? Not on file 03/26/2023 Device with a working camera? Not on file Intimate Partner Violence Answer Date R ecorded Are you denied basic needs s uch as food, clothing, or medical care? No 07/11/2024 In the past 12 months have y ou been in a relationship with a person who hurts, threatens, or tries to control you? No 07/11/2024 Are you denied basic needs s uch as food, clothing, or medical care? No 07/11/2024 In the past 12 months have y ou been in a relationship with a person who hurts, threatens, or tries to control you? No 07/11/2024 Sex and Gender Information Value Date Recorded Sex Assigned at Not on file Legal Sex Male 9:31 PM EDT Gender Identity Not on file Sexual Orientation Not on file documented as of this encounter Plan of Treatment Upcoming Encounters Date Type Department Care Team (Late st Contact Info) Description 05/29/2025 10:30 AM EDT Office Visit [facility] [address] [place] [address] Papo Woods DO 4 [facility] Medicine, [facility] [place] [address] [email or web address] documented as of this encounter Visit Diagnoses Not on filedocumented in this encounter Care Teams Bending Frame Operator Relationship Specialty Start Date End Date Lincoln Rnadhawa NP [address] [place] [id number] [email or web address] PCP - General Nurse Practitioner 06/25/24 Lincoln Randhawa NP [address] [place] [id number] [email or web address] Medicine 02/22/22 documented as of this encounter Additional Source Comments The information contained in this document represents components of the legal health record. It is not the complete legal health record.[facility]
[2025-05-20 14:32] VITALS: BP 114/72; PULSE 100; TEMP 37.1; O2SAT 98; BMI 29.6
--- NOTE | 2025-05-20 14:32 | MHC.OFFWIV ---
Intake Vital Signs 05/20/25 14:32 Height 5 ft 8 in Weight 195 lb BMI 29.6 BP 114/72 Blood Pressure Location Lt brachial Position Sitting Pulse 100 Pulse Source Pulse Oximeter Temp 98.8 F Temp Source Oral Pulse Oximetry (%) 98 Oxygen Delivery Method Room Air Intake Visit Reasons: EP-rt side stomach dog bit Intake Note: presents with slow healing wound from a dog bite, site is lumpy Patient Tobacco Use Status: Never used Tobacco Allergies shellfish derived Allergy (Unknown, Verified 05/20/25 14:40) Facial Swelling acetaminophen (From Percocet) Adverse Reaction (Unknown, Verified 05/20/25 14:40) NAUSEA/VOMITING oxycodone (From Percocet) Adverse Reaction (Unknown, Verified 05/20/25 14:40) NAUSEA/VOMITING Do you need a note to return to daycare/school/sports/work: No HPI HPI Comments History of Present Illness Details History - The patient is a 49-year-old male presenting with a dog bite. - The dog bite occurred on May 03, inflicted by a stranger's dog approximately 3-5 years old. - Initial treatment included a prescription for Augmentin, which was completed over a 15 day period. - The patient reports persistent swelling and bruising at the site of the bite. - No x-ray was performed initially to rule out retained foreign bodies. - Was seen in the ED and at this [place] clinic, rec'd tetanus Physical Exam General: Cooperative, healthy appearing, comfortable, no acute distress and well developed Orientation: Patient oriented x3 Limitations: No limitations Head: Normal to inspection Ears: Hearing grossly normal bilaterally Nose: Normal External nose present Face and sinus: Normal facial exam Mouth: normal, moist oral mucosa Eyes: Appearance normal, both eyes and all related structures Neck: Normal visual inspection and Yes full ROM Respiratory: Normal respiratory effort and able to speak in complete sentences. Skin: RLQ of abdomen has 2.5cm indurated area, inferior edge is lumpy Neuro: Patient oriented x3 Extremities: moving all extremities normally [facility] Medical History Rupture of right biceps tendon Plantar fasciitis of right foot Social History Housing: House Patient Tobacco Use Status: Never used Tobacco e-Cigarette/Vaping Use: Never Used Second Hand Smoke Exposure: No service: No Current occupational status: unemployed Cognitive needs: No Hearing needs: No Vision needs: No Review of Systems Const All systems reviewed & are unremarkable except as noted in HPI and below Physical Exam Vital Signs: Last Vital Signs Temp 98.8 F 05/20/25 14:32 Pulse 100 05/20/25 14:32 BP 114/72 05/20/25 14:32 Pulse Ox 98 05/20/25 14:32 Oxygen Delivery Method Room Air 05/20/25 14:32 BMI result Body Mass Index 29.6 Assessment & Plan Assessment & Plan (1) Dog bite of abdomen: Code(s): S31.159A - Open bite of abdominal wall, unspecified quadrant without penetration into peritoneal cavity, initial encounter; W54.0XXA - Bitten by dog, initial encounter Plan: Plan Patient was informed and verbally consented to the use of an ambient scribe for clinic note documentation during this visit 1. Dog Bite - Does not appear to be any infection on the skin, appears to be healing well except for the likely hematoma however he never had an XR to rule out FB. - Plan to perform an x-ray to rule out retained foreign bodies such as teeth. - My interpretation of XR is no foreign body retained. - Continued monitoring of the hematoma, return if develops fevers, pain or worsening of any other symptoms. Orders: Orders XR KUB Today S31.159A - Open bite of abdominal wall, unspecified quadrant without penetration into peritoneal cavity, initial encounter, W54.0XXA - Bitten by dog, initial encounter Coding Level of Care Code Est Pt Level 4 (83624) Diagnoses Dog bite of abdomen S31.159A; W54.0XXA
== END 2025-05-20 15:50 | disposition home or self-care (01) ==
PROVIDERS: PCP Nurse Practitioner Family; Visit Provider Physician Assistant
DX: S31.159A Open bite of abdominal wall, unspecified quadrant without penetration into peritoneal cavity, initial encounter (principal); W54.0XXA Bitten by dog, initial encounter

== ENCOUNTER 2025-05-20 13:46 | Outpatient (REF) | payer BC, SELFPAY ==
--- NOTE | ~2025-05-20 | XR_ITS ---
EXAMINATION: XR ABDOMEN KUB CLINICAL INDICATION: S31.159A - Open bite of abdominal wall, unspecified quadrant without pen... COMPARISON: None available. TECHNIQUE: AP view of the abdomen. FINDINGS: The bowel gas pattern is normal with no evidence of ileus or obstruction. No unusual soft tissue calcifications are noted. The bones are unremarkable. XR/XR KUB IMPRESSION: Unremarkable examination. Electronically signed by: Familia Segovia MD 05/20/2025 03:27 PM EDT
== END 2025-05-20 13:47 | disposition home or self-care (01) ==
LOC: HO.HMGCX 13:46
PROVIDERS: PCP Nurse Practitioner Family; Visit Provider Physician Assistant
DX: S31 Open wound of abdomen, lower back, pelvis and external genitals (principal); W54.0XXD Bitten by dog, subsequent encounter
CPT/HCPCS: 74018

== ENCOUNTER → 2025-05-20 15:12 | Outpatient (BNV) | payer BC, SELFPAY | PROVIDERS: PCP Nurse Practitioner Family; Visit Provider Radiology Diagnostic Radiology | DX: S31.159A Open bite of abdominal wall, unspecified quadrant without penetration into peritoneal cavity, initial encounter (principal); W54.0XXA Bitten by dog, initial encounter | CPT/HCPCS: 74018 ==

== ENCOUNTER 2025-07-06 14:40 | Outpatient (AMB) | payer BC, SELFPAY ==
[2025-07-06 15:01] VITALS: BP 120/86; PULSE 104; RESP 16; O2SAT 98; BMI 29.3
--- NOTE | 2025-07-06 15:01 | MHC.PC.OV ---
Vital Signs 07/06/25 15:01 Height 5 ft 8 in Weight 193 lb BMI 29.3 BP 120/86 Blood Pressure Location Lt brachial Position Sitting Respiration 16 Pulse 104 H Pulse Source Pulse Oximeter Pulse Oximetry (%) 98 Oxygen Delivery Method Room Air Intake Visit Reasons: PE Advisor Advocate Angel Co Founder Required: No Accompanied by: Self / Same As Patient Allergies shellfish derived Allergy (Unknown, Verified 07/06/25 15:03) Facial Swelling acetaminophen (From Percocet) Adverse Reaction (Unknown, Verified 07/06/25 15:03) NAUSEA/VOMITING oxycodone (From Percocet) Adverse Reaction (Unknown, Verified 07/06/25 15:03) NAUSEA/VOMITING Medication List - Last Reconciled 07/06/25 by LUIS MooreP- amlodipine 10 mg PO DAILY 90 days labetalol 100 mg PO BID prednisone 40 mg (2 x 20 mg) PO DAILY 5 days Tobacco use date assessed: 07/06/25 Dental Screening Dental Screen Date: 05/29/24 HPI PE HPI Details History of Present Illness The patient is a 49-year-old male presenting for a physical examination and follow-up on a previous dog bite. In October, the patient was bitten by a pit bull dog, which was up-to-date on vaccinations. He was treated in the emergency room with Augmentin, and the area has healed significantly. Currently, the patient reports a slightly indurated area at the site of the bite on the right abdomen, with slight tenderness upon touch. There are no active signs of infection, such as erythema, warmth, or drainage. (please see previous documentation) The indurated tissue is suspected to be a trapped hematoma, which is expected to take time to absorb. Tetanus was given at hospital. Dog was apparently vaccinated, police report filled out. pt stung by a bee approx 24hrs ago, left wrist, took benadryl, denies any fevers, chills, SOB. DOes report warmth to the region and redness Health Maintenance - Up-to-date vaccinations, including TB Social History Review of Systems - Cardiovascular: Denies chest pain - Respiratory: Denies dyspnea - Gastrointestinal: Denies constipation and diarrhea - Psychiatric: Denies suicidal ideation and homicidal ideation Physical Exam General: Cooperative, healthy appearing, comfortable, no acute distress and well developed Orientation: Patient oriented x3 Limitations: No limitations Head: Normal to inspection Ears: Hearing grossly normal bilaterally Nose: Normal external nose present Face and sinus: Normal facial exam Eyes: Appearance normal, both eyes and all related structures Neck: Normal visual inspection and Yes full ROM Respiratory: Normal respiratory effort and able to speak in complete sentences. Clear to auscultation bilaterally Cardiovascular: Regular rate and rhythm. Normal S1 and S2 GI: Slight tenderness with touch on the right abdomen, no active signs of infection, no erythema, warmth to the area, or drainage. : Testicles without masses/lesions and no hernias appreciated Skin: Indurated tissue present, likely a underlying hematoma, faint tenderness with palpation (Right abd). left volar wrist, and surrounding tissue with faint erythema, faintly swollen, warm with touch Neuro: Patient oriented x3 Extremities: Normal to inspection Plan 1. Dog Bite The patient was bitten by a pit bull in October and treated with Augmentin in the emergency room. The area has healed significantly, but there is a slightly indurated area at the site of the bite on the right abdomen. The induration is likely a hematoma, expected to absorb over time. 2. bee sting, sending prednisone to help with reaction, no spreading erythema or signs of anaphylaxis noted Discussion Notes I discussed with the patient that the indurated area at the site of the dog bite is likely a trapped hematoma and should absorb over time. I reassured him that there are no active signs of infection and Tetanus, is up-to-date. DOg was apparently vaccinated, with rabies vaccine (included) Patient Instructions - Monitor the site of the bite for any changes or signs of infection. - Follow up if there are any concerns or if the induration does not improve. [facility] Medical History Rupture of right biceps tendon Plantar fasciitis of right foot Social History Housing: House Patient Tobacco Use Status: Never used Tobacco e-Cigarette/Vaping Use: Never Used Second Hand Smoke Exposure: No service: No Current occupational status: unemployed Cognitive needs: No Hearing needs: No Vision needs: No Questionnaire Thrive Questionnaire Date Thrive assessed: 05/29/24 I am a: Patient What is your living situation today?: I have a steady place to live Within the past 12 months, did the food you bought not last and you didn't have the money to get more?: I choose not to answer this question Within the past 12 months, did you worry whether your food would run out before you got money to buy more?: I choose not to answer this question Do you have trouble paying for medicines?: I choose not to answer this question Do you have trouble getting transportation to medical appointments?: I choose not to answer this question Do you have trouble paying your heating and electricity bill?: I choose not to answer this question Do you have trouble taking care of your child, family member or friend?: I choose not to answer this question Do you have trouble with day-to-day activities such as bathing, preparing meals, shopping, managing finances, etc.?: I choose not to answer this question Are you currently unemployed and looking for a job?: No Are you interested in more education?: I choose not to answer this question Please select the resources that you would like help with: None Currently or been in a relationship where the following occur: I choose not to answer THRIVE Score: 0 MIRZA-7 AMB Questionnaire MIRZA-7 Date MIRZA - 7 assessed: 05/29/24 Source: Developed by Drs. Rodolfo Grimaldo, Elke Dukes, Iggy Swann and colleagues, with an educational carey from [employer]. Physical exam (Primary Care) Vital Signs: Last Vital Signs Pulse 104 H 07/06/25 15:01 Resp 16 07/06/25 15:01 BP 120/86 07/06/25 15:01 Pulse Ox 98 07/06/25 15:01 Oxygen Delivery Method Room Air 07/06/25 15:01 BMI result Body Mass Index 29.3 Tobacco/Smoking Status: Tobacco use Status Tobacco use date assessed 07/06/25 07/06/25 15:06 Patient Tobacco Use Status Never used Tobacco 07/06/25 15:06 e-Cigarette/Vaping Use Never Used 07/06/25 15:06 Thrive Assessment: Date of Thrive Assessment Date Thrive assessed 05/29/24 07/06/25 15:06 Currently or been in a relationship where the following occur: I choose not to answer Coding Level of Care Code Est Pt Level 3 (61228) Est Pt Prev Care 40-64y(49091) Diagnoses Encounter for routine adult physical exam with abnormal findings Z00. Screening PSA (prostate specific antigen) Z12.5 Dog bite W54.0XXA Bee sting T63.441A Vitamin D deficiency E55.9 Assessment & Plan Assessment & Plan (1) Encounter for routine adult physical exam with abnormal findings: Code(s): Z00.01 - Encounter for general adult medical examination with abnormal findings Category: Medical (2) Screening PSA (prostate specific antigen): Code(s): Z12.5 - Encounter for screening for malignant neoplasm of prostate Category: Medical (3) Dog bite: Code(s): W54.0XXA - Bitten by dog, initial encounter Category: Medical (4) Bee sting: Code(s): T63.441A - Toxic effect of venom of bees, accidental (unintentional), initial encounter Category: Medical (5) Vitamin D deficiency: Code(s): E55.9 - Vitamin D deficiency, unspecified Category: Medical Plan . Orders: Orders Comprehensive [place]. Panel Fast Today Z00. - Encounter for general adult medical examination with abnormal findings TSH reflex Free T4 Today Z00. - Encounter for general adult medical examination with abnormal findings UA CC w/rflx Micro + Cult Today Z00.01 - Encounter for general adult medical examination with abnormal findings Lipid Panel Today Z00.01 - Encounter for general adult medical examination with abnormal findings Vitamin D 25-OH Total Today E55.9 - Vitamin D deficiency, unspecified Complete Blood Count Auto Diff Today Z00. - Encounter for general adult medical examination with abnormal findings Prostate Specific Antigen Scr Today Z12.5 - Encounter for screening for malignant neoplasm of prostate Medications: New prednisone 40 mg (2 x 20 mg) PO DAILY 10 tabs 0RF 5 days
--- OUTSIDE RECORDS SUMMARY | 2025-07-06 17:01 | XMS_ITS | Clinical Summary ---
Author Organization [facility] Address [address] [facility] [address] [place] [address] Phone Care Team Providers Care Control Manager Name Role Phone Lincoln Randhawa SWITCHBOARD WIRE WORKER HELPER Unavailable [phone] Lincoln Randhawa SWITCHBOARD WIRE WORKER HELPER Primary Care Provider + Allergies Active Allergy Reactions Criticality Noted Date Comments Gabapentin Anxiety,Hallucinations High 08/20/2024 Other 04/18/2019 Seasonal Shellfish Containing Products Swelling 04/18/2019 Medications amLODIPine (NORVASC) 10 MG tablet Take 10 mg by mouth daily. Active labetaloL (TRANDATE) 100 MG tablet Take 1 tablet by mouth 2 (two) times a day. 09/06/2023 Active aspirin 325 MG EC tablet Take 1 tablet (325 mg total) by mouth daily for 14 days. 14 tablet 07/11/2024 Active tobramycin (TOBREX) 0.3 % ophthalmic solution Place 1 drop into the left eye every 4 (four) hours. Active Active Problems Problem Noted Date Diagnosed Date Hypertension 07/10/2024 Right buttock pain 11/28/2019 Sacroiliitis, not elsewhere classified 9 Encounters Date Type Department Care Team Description 07/03/2025 Telephone [employer] [facility] Orthopedics & Sports Medicine [address] [place] [address] [phone] Papo Woods DO [employer] Attys Request 06/09/2025 Telephone [employer] [facility]ics & Sports Medicine [address] [place] [address] [phone] Carter, Papo M, DO USI /WC Asking for clarification on work notes, 05/29/2025 10:30 AM EDT Office Visit [facility] Medicine [address] [place] [phone] Papo Woods, DO Scapulothoracic syndrome (Primary Dx); Acute pain of right shoulder 05/28/2025 Ancillary Orders [facility],Outside Imaging [address] [place] [address] Unknown, Unknown, 05/07/2025 Telephone [facility] [address] [place] [phone] Papo Woods, DO re update work note 05/04/2025 Telephone [facility] [address] [address] Sandra Francois, RN PT referral 05/04/2025 Telephone [facility] [address] [address] Papo Woods, DO request work note 04/17/2025 11:00 AM EDT Office Visit [facility] [address] [place] [phone] Papo Woods, DO Status post tendon repair (Primary Dx); Traumatic incomplete tear of right rotator cuff, sequela; Superior labrum vxggiwdq-ab-uuqunphtf (SLAP) tear of right shoulder from Last 3 Months Social History Tobacco Use Types Packs/Day Years Used Date Smoking Tobacco: Never Smokeless Tobacco: Never Alcohol Use Standard Drinks/Week Comments Not Currently 0 (1 standard drink = 0.6 oz [...] on file Sexual Orientation Not on file Last Filed Vital Signs Vital Sign Reading Time Taken Comments Blood Pressure 132/86 07/11/2024 1:50 PM EDT Pulse 88 07/11/2024 1:50 PM EDT Temperature 36.3 C (97.3 F) 07/11/2024 1:50 PM EDT Respiratory Rate 12 07/11/2024 1:00 PM EDT Oxygen Saturation 96% 07/11/2024 1:50 PM EDT Inhaled Oxygen Concentration - - Weight 87.1 kg (192 lb) 07/04/2024 11:14 AM EDT Height 172.7 cm (5' 8 ) 07/04/2024 11:14 AM EDT Body Mass Index 29.19 07/04/2024 11:14 AM EDT Plan of Treatment Health Maintenance Due Date Last Done Comments LIPID PANEL 1973 DEPRESSION SCREENING 1985 HEPATITIS C SCREENING 1991 HIV ONE-TIME SCREENING (18-6 5 YEARS) 1991 SCREENING FOR DIABETES 2008 COLONOSCOPY 2018 FIT TEST 2018 FOBT 2018 SIGMOIDOSCOPY 2018 VIRTUAL COLONOSCOPY 2018 PNEUMOCOCCAL VACCINES (50+ years) (1 of 1 - PCV) 2023 ZOSTER VACCINES (1 of 2) 2023 BLOOD PRESSURE 12/30/2024 07/02/2024 INFLUENZA VACCINE (#1) 2025 COVID-19 VACCINE (4 - 2024-2 6 season) 2025 11/17/2022, 04/25/2022, 04/04/2022 COLOGUARD 07/08/2027 07/08/2024 COLORECTAL CANCER SCREENING 07/08/2027 Adult Td,Tdap Booster 06/21/2028 06/21/2018 , 10/10/2017, 10/17/2008 SMOKING STATUS SCREENING (On ce After 26 Yrs) Completed 03/06/2025 HEPATITIS A VACCINES Aged Out No long er eligible based on patient's age to complete this topic HIB VACCINES Aged Out No longer eligi ble based on patient's age to complete this topic MENINGOCOCCAL VACCINES (ACWY) Aged Out No longer eligible based on patient's age to complete this topic MENINGOCOCCAL VACCINES (B) Aged Out N o longer eligible based on patient's age to complete this topic Medical Devices Implanted Type Area [employer] Lead Device Identifier Shelf Expiration Date Model / Serial / Lot Pin Pin Left: Finger Description:3rd finger Repair Bicep Number 2 System Delivery Implant Distal Straight Needle - [id number] Implanted:Qty: 1 on 07/11/2024 by Papo Woods DO at [facility] Right: [employer] 02/25/2029 [id number] / / [id number] Device Fixation Ultrabutton Adjustable - [id number] Implanted:Qty: 1 on 07/11/2024 by Papo Woods DO at [facility] Right: Tani HERBERT 05/05/2027 [id number] / / [id number] Insurance [facility] [employer], [facility] Than[facility] [place] [address] [place] [address] [place] [address] [employer] Care Teams Control Manager Relationship Specialty Start Date End Date Lincoln Randhawa NP [facility] [place] [address] PCP - General Nurse Practitioner 06/25/24 Lincoln Randhawa NP [address] [place] [address] [place] [address] Family Medicine 02/22/22 Additional Source Comments The information contained in this document represents components of the legal health record. It is not the complete legal health record.[facility]
--- OUTSIDE RECORDS SUMMARY | 2025-07-06 17:01 | XMS_ITS | Encounter Summary ---
Author Organization [facility] Address [address] [facility] [address] [place] [phone] Phone Care Team Providers Care Appliance Assembler Name Role Phone Lincoln Randhawa FERTILIZER PROCESSING SUPERVISOR Primary Care Provider + Pcp, Unknown Primary Care Provider Unavailabl Lincoln Maria FERTILIZER PROCESSING SUPERVISOR Unavailable [phone] Lincoln Randhawa FERTILIZER PROCESSING SUPERVISOR Primary Care Provider + Encounter Details Date Type Department Care Team (Late st Contact Info) Description 05/10/2020 Procedure Pass [facility], [address] [address] Social History Tobacco Use Types Packs/Day Years Used Date Smoking Tobacco: Never Smokeless Tobacco: Never Sex and Gender Information Value Date Recorded Sex Assigned at Not on file Legal Sex Male 9:31 PM EDT Gender Identity Not on file Sexual Orientation Not on file documented as of this encounter Plan of Treatment Not on file documented as of this encounter Visit Diagnoses Not on filedocumented in this encounter Care Teams Appliance Assembler Relationship Specialty Start Date End Date Lincoln Randhawa NP [address] [facility] [place] [address] PCP - General Family Medicine 01/02/20 02/21/22 Pcp, Unknown PCP - General 02/22/22 06/24/24 Lincoln Randhawa NP [address] [facility] [place] [address] PCP - General Nurse Practitioner 06/25/24 Lincoln Randhawa NP [address] [place] [address] [place] [address] Family Medicine 02/22/22 documented as of this encounter Additional Source Comments The information contained in this document represents components of the legal health record. It is not the complete legal health record.[facility]
--- OUTSIDE RECORDS SUMMARY | 2025-07-06 17:01 | XMS_ITS | Encounter Summary ---
Author Organization [facility] Address [address] [place] [address] Phone Care Team Providers Care Paint Prep Technician Name Role Phone Lincoln Randhawa ASSISTANT PROFESSOR SCULPTURE Unavailable [phone] Lincoln Randhawa ASSISTANT PROFESSOR SCULPTURE Primary Care Provider + Encounter Details Date Type Department Care Team (Late st Contact Info) Description 07/11/2024 Procedure Pass [place] Admitting Dept - Virtual Department [address] [place] [address] Social History Tobacco Use Types Packs/Day Years [...] on filedocumented in this encounter Care Teams Paint Prep Technician Relationship Specialty Start Date End Date Lincoln Randhawa NP [address] [place] [address] PCP - General Nurse Practitioner 06/25/24 Lincoln Randhawa NP [address] [place] [address] Family Medicine 02/22/22 documented as of this encounter Additional Source Comments The information contained in this document represents components of the legal health record. It is not the complete legal health record.[facility]
--- OUTSIDE RECORDS SUMMARY | 2025-07-06 17:02 | XMS_ITS | Encounter Summary ---
Author Organization [facility] Address [address] [facility] [place] [address] Phone Care Team Providers Care Facilities Maintenance Supervisor Name Role Phone Lincoln Randhawa CONSERVATION ENFORCEMENT OFFICER Unavailable [phone] Lincoln Randhawa CONSERVATION ENFORCEMENT OFFICER Primary Care Provider + Reason for Visit * Reason Onset Date Comments [facility] Attys Request 07/03/2025 Encounter Details Date Type Department Care Team ([facility] st Contact Info) Description 07/03/2025 Telephone [facility] Orthopedics & Sports Medicine [address] [place] [address] Papo Woods DO [address] [place] [address] Orthopedics & Sports Medicine, [facility] [place] [address] [email or web address] Attys Request Social History Tobacco Use Types Packs/Day Years [...] on file documented as of this encounter Progress Notes * Anna Clarke - 07/03/2025 1:45 PM EDT [facility] Attys Request asking for a narrative report to address numerous issues (please see request in media) Check has also been submitted already w/request from Attys office. Is this something you willdo ?? documented in this encounter Plan of Treatment Not on file documented as of this encounter Visit Diagnoses Not on filedocumented in this encounter Care Teams Facilities Maintenance Supervisor Relationship Specialty Start Date End Date Lincoln Randhawa NP [address] [facility] [address] PCP - General Nurse Practitioner 06/25/24 Lincoln Randhawa NP [facility] [place] [address] Family Medicine 02/22/22 documented as of this encounter Additional Source Comments The information contained in this document represents components of the legal health record. It is not the complete legal health record.[facility]
--- OUTSIDE RECORDS SUMMARY | 2025-07-06 17:02 | XMS_ITS | Encounter Summary ---
Author Organization [facility] Address [address] [facility] [address] [place] [address] Phone Care Team Providers Care [employer] Cake Decorator Name Role Phone Gary Crabtree MD Primary Care Provider [phone] Gary Crabtree MD Primary Care Provider [phone] Lincoln Randhawa NP Primary Care Provider + Pcp, Unknown Primary Care Provider Unavailabl e Lincoln Randhawa HEAD SAWYER AUTOMATIC Unavailable [phone] Lincoln Randhawa NP Primary Care Provider + Encounter Details Date Type Department Care Team (Late st Contact Info) Description 09/05/2019 Procedure Pass [facility], [address] [address] Social History Tobacco Use Types Packs/Day Years [...] on filedocumented in this encounter Care Teams [employer] Cake Decorator Relationship Specialty Start Date End Date Gary Crabtree MD PCP - General Internal Medicine 04/04/19 12/11/19 Gary Crabtree MD [email or web address] PCP - General Internal Medicine 12/12/19 01/01/20 Lincoln Randhawa NP [facility] [address] PCP - General Family Medicine 01/02/20 02/21/22 Pcp, Unknown PCP - General 02/22/22 06/24/24 Lincoln Randhawa NP [address] [facility] [place] [address] PCP - General Nurse Practitioner 06/25/24 Lincoln Randhawa NP [address] [place] [address] [place] [address] Family Medicine 02/22/22 documented as of this encounter Additional Source Comments The information contained in this document represents components of the legal health record. It is not the complete legal health record.[facility]
== END 2025-07-06 17:04 | disposition home or self-care (01) ==
LOC: HO.HMCC 14:41
PROVIDERS: PCP Nurse Practitioner Family; Visit Provider Nurse Practitioner Family
DX: Z00.01 Encounter for general adult medical examination with abnormal findings (principal); E55.9 Vitamin D deficiency, unspecified; W54.0XXA Bitten by dog, initial encounter; Z12.5 Encounter for screening for malignant neoplasm of prostate